=== PATIENT | female | born 1960 | race Caucasian/White ===

== ENCOUNTER 2018-01-01 11:14 | Emergency (ER) | payer BC ==
[~2018-01-01] VITALS: Ht 152.4 cm; Wt 83.6 kg
[2018-01-01 11:17] VITALS: TEMP 97.9
[2018-01-01 11:55] LABS: BASO % 0.6 % (0.0-2.0); EOS # 0.1 (0.0-0.7); EOS % 1.6 % (0-4.0); GRAN # 2.1 (1.4-6.5); GRAN % 42.2 % (42.2-75.2); HEMATOCRIT 40.1 % (37.0-47.0); HEMOGLOBIN 14.1 g/dl (12.5-16.0); LYMPH # 2.4 (1.2-3.4); LYMPH % 46.9 % (20.0-51.0); MEAN CELL VOLUME 90 fl (80.0-100.0); MEAN CORPUSCULAR HEMOGLOBIN 32 pg (27.0-31.0); MEAN CORPUSCULAR HGB CONC 35 g/dl (33.0-37.0); MEAN PLATELET VOLUME 8.5 fl (7.4-10.4); MONO # 0.4 (0.1-0.6); MONO % 8.3 % (1.7-9.3); PLATELET COUNT 259 K/mm3 (130-400); RED BLOOD COUNT 4.45 M/mm3 (4.10-5.30); REDCELL DISTRIBUTION WIDTH-CV 12.8 % (11.5-14.5)
[2018-01-01 12:02] LABS: PARTIAL THROMBOPLASTIN TIME 34.7 SECONDS (26.0-37.0)
[2018-01-01 12:06] LABS: ALANINE AMINOTRANSFERASE 38 U/L (9-52); ALBUMIN 4.4 gm/dL (3.5-5.0); ALKALINE PHOSPHATASE 57 U/L (50-136); ANION GAP 9 mmol/L (7-16); AST,SGOT 22 U/L (15-37); BILIRUBIN,TOTAL 0.4 mg/dL (0.0-1.0); BLOOD UREA NITROGEN 14 mg/dL (7-17); CALCIUM 9.1 mg/dL (8.4-10.2); CARBON DIOXIDE 25 mmol/L (22-30); CHLORIDE 105 mmol/L (98-107); GLUCOSE 91 mg/dL (74-106); POTASSIUM 3.8 mmol/L (3.4-5.0); SODIUM 138 mmol/L (137-145); TOTAL PROTEIN 7.7 gm/dL (6.4-8.2)
[2018-01-01 12:21] LABS: TROPONIN-I < 0.012 ng/mL (0.000-0.034)
[2018-01-01 12:23] LABS: PROLACTIN 19.4 ng/mL (3.0-18.6)
[2018-01-01] MEDS ORDERED: VITAMIN D31000 I1 PO (13:45)
[2018-01-01] MEDS ORDERED: ASPIRIN 81M81 MG/TA2 PO (13:45)
[2018-01-01] MEDS ORDERED: VITAMIN K0.1 MG (13:45)
[2018-01-01] MEDS ORDERED: EPA FISH OIL1 SGL PO (13:46)
[2018-01-01] MEDS ORDERED: KEPPRA 500MG500 MG PO (15:52)
[2018-01-01 16:20] VITALS: BP 108/66; PULSE 76
== END 2018-01-01 16:19 | disposition home or self-care (01) ==
LOC: COL.ER 11:14
PROVIDERS: Family Medicine
DX: R56.9 Unspecified convulsions (principal)
CPT/HCPCS: J1953; J7030